=== PATIENT | male | born 1960 | race Caucasian/White ===

== ENCOUNTER → 2019-12-06 07:55 | Outpatient (CLI) | payer BC, SELFPAY ==
--- NOTE | 2019-12-06 | DI.US.S_ITS ---
PROCEDURE: US ABD AORTA ANEURYSM SCREEN INDICATIONS: SCREENING TECHNIQUE: Real time scanning was performed of the aorta and iliac arteries, with image documentation. COMPARISON: [facility], CT, KIDNEY/ URETER/BLADDER, 02/02/2017, 12:02. FINDINGS: Aorta: Proximal aortic diameter measures 1.8 cm. Mid-aorta measures 1.7 cm. Distal aortic diameter is 1.6 cm. Iliac arteries: Right common iliac artery measures 1.1 cm. Left common iliac artery measures 1.1 cm. IMPRESSION: Negative for aneurysm. Dictated by: Driss Mckay M.D. on 12/06/2019 at 8:03 Approved by: Driss Mckay M.D. on 12/06/2019 at 8:04
== END ==
PROVIDERS: Family Provider Family Medicine; PCP Student in an Organized Health Care Education/Training Program; Referring Provider Student in an Organized Health Care Education/Training Program; Visit Provider Student in an Organized Health Care Education/Training Program
DX: Z13.6 Encounter for screening for cardiovascular disorders (principal)
CPT/HCPCS: 76706

== ENCOUNTER → 2020-07-24 11:19 | Outpatient (CLI) | payer BC, SELFPAY ==
[2020-07-25 01:28] LABS: COVID19 Sendout Not Detected (Not Detect)
== END ==
PROVIDERS: Family Provider Family Medicine; PCP Student in an Organized Health Care Education/Training Program; Visit Provider Physician Assistant
DX: Z01.812 Encounter for preprocedural laboratory examination (principal)
CPT/HCPCS: 87635

== ENCOUNTER → 2020-07-27 12:45 | Outpatient (CLI) | payer BC, SELFPAY ==
--- NOTE | 2020-07-27 | DI.RAD.S_ITS ---
PROCEDURE: XR CHEST 2V INDICATIONS: SHORTNESS OF BREATH TECHNIQUE: 2 views of the chest were acquired. COMPARISON: [facility], , CHEST 2 VIEW, 04/23/2015, 11:57. FINDINGS: Surgical changes and devices: None. Lungs and pleura: Lungs are clear. No pleural effusions or pneumothorax. Mediastinum: Mediastinal contours are normal. Heart size is normal. Bones and chest wall: No suspicious bony abnormalities. Soft tissues appear unremarkable. IMPRESSION: No acute cardiopulmonary disease. Dictated by: Ernesto ABBASI Interpreted: Dorita Hurley MD on 07/27/2020 at 16:25 Approved by: Dorita Hurley M.D. on 07/27/2020 at 16:33
--- NOTE | 2020-08-02 09:00 | PM.PFT.1 ---
Pulmonary Function Test Referral & Results Date Patient Seen: 07/27/20 Requesting provider: Qing Wagner Results: The spirometry demonstrates an FVC of 5.6 or L which is 106% of predicted. The FEV1 was measured at 3.94 L which is 99% of predicted. The FEV1/FVC ratio was 70 which is 93% of predicted. Following the administration of bronchodilator there was no appreciable change. Lung volumes show an SVC of 5.04 L which is 97% of predicted. The diffusing capacity was measured at 34.73 which is 95% of predicted. The maximum voluntary ventilation was normal Interpretation: This study demonstrates normal pulmonary function
== END ==
PROVIDERS: Family Provider Family Medicine; PCP Student in an Organized Health Care Education/Training Program; Referring Provider Student in an Organized Health Care Education/Training Program; Visit Provider Student in an Organized Health Care Education/Training Program
DX: R06.02 Shortness of breath (principal)
CPT/HCPCS: 71046; 94060; 94726; 94729

== ENCOUNTER → 2022-11-11 07:38 | Outpatient (CLI) | payer BC, SELFPAY ==
--- NOTE | 2022-11-11 07:40 | DI.US.S_ITS ---
PROCEDURE: US ABDOMEN COMPLETE INDICATIONS: RIGHT UPPER QUADRANT PAIN TECHNIQUE: Real-time scanning was performed of the abdominal and retroperitoneal organs, with image documentation. COMPARISON: [facility], CT, KIDNEY/ URETER/BLADDER, 02/02/2017, 12:02. FINDINGS: Liver: The liver demonstrates mildly enlarged size. The liver demonstrates generalized mildly increased echogenicity. This decreases ultrasound sensitivity for detection of hepatic masses. The main portal vein demonstrates normal size and demonstrates normal appearing, hepatopetal flow. Gallbladder: The gallbladder appears filled with stones and sludge. There is posterior shadowing, obscuring evaluation of the region The gallbladder wall is not thickened, measuring 3 mm or less. No specific pericholecystic fluid is seen. The sonographic Saenz sign is negative. Biliary ducts: Intrahepatic bile ducts are non-dilated. Extrahepatic bile duct caliber measures 5 mm. Normal is 6-7 mm or less in diameter, or 10 mm or less post-cholecystectomy. Pancreas: Visualized portions of the pancreas are sonographically normal. Spleen: Spleen is normal in size and homogeneous in echotexture. Kidneys: Kidneys are normal in size and echotexture. Right kidney measures 11.9 cm long; left kidney measures 12.7 cm long. No hydronephrosis. No solid masses. There is an apparent shadowing stone seen involving the right renal pelvis that measures to 7 mm. Aorta: Visualized aorta is normal in caliber at less than 3 cm. Iliacs: Proximal common iliac arteries are normal in caliber at less than 2.5 cm. IVC: Intrahepatic inferior vena cava is patent. Miscellaneous: No free abdominal fluid. IMPRESSION: Abnormal gallbladder, which appears filled with stones and sludge, with prominent associated shadowing. Mildly enlarged liver with fatty liver infiltration. Apparent 7 mm shadowing right renal stone. Dictated by: Driss Mckay M.D. on 11/11/2022 at 16:44 Approved by: Driss Mckay M.D. on 11/11/2022 at 16:47
== END ==
PROVIDERS: PCP Family Medicine; Referring Provider Family Medicine; Visit Provider Family Medicine
DX: R10.11 Right upper quadrant pain (principal); K76.0 Fatty (change of) liver, not elsewhere classified; R93.2 Abnormal findings on diagnostic imaging of liver and biliary tract
CPT/HCPCS: 76700

== ENCOUNTER 2023-08-06 16:55 | Emergency (ER) | payer BC, SELFPAY ==
[2023-08-06 17:08] VITALS: BP 185/99; PULSE 96; RESP 20; TEMP 37.5; O2SAT 99; BMI 26.4
--- NOTE | 2023-08-06 17:16 | DI.RAD.S_ITS ---
PROCEDURE: XR CHEST 1V INDICATIONS: chest pain TECHNIQUE: One view of the chest was acquired. COMPARISON: [facility], CR, XR CHEST 2V, 07/27/2020, 13:31. FINDINGS: Surgical changes and devices: None. Lungs and pleura: Lungs are clear. No pleural effusions or pneumothorax. Mediastinum: Mediastinal contours appear normal. Heart size is normal. Bones and chest wall: No suspicious bony lesions. Age-appropriate bony degenerative changes are seen. Overlying soft tissues appear unremarkable. IMPRESSION: Portable chest within normal limits for age. Dictated by: Driss Mckay M.D. on 08/06/2023 at 17:03 Approved by: Driss Mckay M.D. on 08/06/2023 at 17:04
[2023-08-06 17:45] LABS: Prothrombin Time 11.7 SECONDS (10.1-12.7)
[2023-08-06 17:48] LABS: PTT Partial Thromboplastin Tim 36 SECONDS (26-36)
[2023-08-06 17:49] LABS: Add Manual Diff / Slide Review NO; Basophils Absolute Auto 0 /uL (0-100); Basophils Percent Auto 0.4 % (0-2); Eosinophils Absolute Auto 400 /uL (0-450); Hematocrit 42.7 % (41-53); Hemoglobin 14.9 g/dL (13.5-17.5); Lymphocytes Absolute Auto 1000 /uL (1100-4500); Lymphocytes Percent Auto 9.8 % (25-40); Mean Corpuscular HGB Conc 34.9 % (30-36); Mean Corpuscular Hemoglobin 30.6 PG (26-34); Mean Corpuscular Volume 87.8 fL (80-100); Monocytes Absolute Auto 600 /uL (0-900); Monocytes Percent Auto 6.6 % (3-14); Neutrophils Absolute Auto 7700 /uL (1500-7000); Neutrophils Percent Auto 79.2 % (50-75); Platelet Count 196 X10^3/uL (150-400); Red Blood Cell Count 4.86 X10^6/uL (4.5-5.9); Red Cell Distribution Width 13.9 % (11.6-14.8); White Blood Cell Count 9.7 X10^3/uL (4.5-11.0)
[2023-08-06 17:53] LABS: Alanine Aminotransferase 18 IU/L (<50); Albumin 4.8 g/dL (3.5-5.0); Albumin Globulin Ratio 1.5 (1.0-2.8); Alkaline Phosphatase 43 U/L (38-126); Aspartate Aminotransferase 28 IU/L (17-59); BUN Creatinine Ratio 15.9 (6-22); Bilirubin Total 0.8 mg/dL (0.2-1.3); Blood Urea Nitrogen 14 mg/dL (9-20); Calcium 9.5 mg/dL (8.4-10.2); Carbon Dioxide 24 mmol/L (22-32); Chloride 101 mmol/L (98-107); Creatine Kinase 74 U/L (55-170); Estimated Glomerular Filt Rate > 60 mL/min (>60); Globulin 3.1 g/dL (1.7-4.1); Glucose 103 mg/dL (80-110); HEMOLYSIS 24 (0-50); Lipase 50 U/L (23-300); Magnesium 1.9 mg/dL (1.6-2.3); Sodium 136 mmol/L (137-145); Total Protein 7.9 g/dL (6.3-8.2)
[2023-08-06 18:02] LABS: Troponin I < 0.012 ng/mL (0.01-0.034)
[2023-08-06 18:16] LABS: COVID-19 CEPHEID 4-PLEX PCR Negative (Negative); Influenza A - CEPHEID Flu A NEGATIVE (NEGATIVE); Influenza B - CEPHEID Flu B NEGATIVE (NEGATIVE); Respiratory Syncytial Virus Negative (Negative)
[2023-08-06 18:45] VITALS: PULSE 90; RESP 16; O2SAT 99
--- NOTE | 2023-08-06 18:59 | ED.ARRPALP ---
HPI - Arrhythmia/Palpitations General Chief Complaint: Arrhythmia/Palpitations Stated Complaint: A-Fib, heart is racing Time Seen by Provider: 08/06/23 18:45 Source: patient Mode of arrival: Ambulatory History of Present Illness HPI narrative: Patient is a 63-year-old male. Has had history of palpitations in the past. Has never had a diagnosis of AFib. Has never had a Holter monitor. Not on any medications for palpitations. He does have a history of high blood pressure. He is currently fighting a sinus infection. Not currently on any antibiotics. States that last evening he had an episode of his palpitations. He did get somewhat lightheaded during the episode but no chest pain or shortness of breath. Episode lasted for approximately 1 hour which is somewhat longer than what it normally does. He mostly feels the symptoms at night. Because of the length of time that the symptoms lasted that is what brought him in today. He is currently asymptomatic. Related Data Home Medications Medication Instructions Recorded Confirmed albuterol sulfate 90 mcg/actuation 2 puff inhalation Q6H PRN 12/11/22 12/11/22 aerosol inhaler (Ventolin HFA) amlodipine 10 mg tablet 10 mg PO DAILY 12/11/22 12/11/22 budesonide 0.5 mg/2 mL suspension 0.5 mg irrigation DAILY nasal 12/11/22 12/11/22 for nebulization rinse daily fluticasone propionate 250 2 inh inhalation BID 12/11/22 12/11/22 mcg/actuation blister powder for inhalation (Flovent Diskus) levothyroxine 200 mcg tablet 200 mcg PO DAILY 12/11/22 12/11/22 nortriptyline 10 mg capsule 10 mg PO BEDTIME 12/11/22 12/11/22 Allergies Allergy/AdvReac Type Severity Reaction Status Date / Time sulfamethoxazole Allergy Unknown Verified 08/06/23 17:15 [From BACTRIM] trimethoprim [From BACTRIM] Allergy Unknown Verified 08/06/23 17:15 spironolactone Allergy Verified 08/06/23 17:15 Review of Systems Constitutional Constitutional: Reports system reviewed and no additional complaints, except as documented Cardiovascular Cardiovascular: Reports system reviewed and no additional complaints, except as documented Respiratory Respiratory: Reports system reviewed and no additional complaints, except as documented Gastrointestinal Gastrointestinal: Reports system reviewed and no additional complaints, except as documented Integumentary/Breasts Skin/Breast: Reports system reviewed and no additional complaints, except as documented Neurologic Neurologic: Reports system reviewed and no additional complaints, except as documented Hematologic/Lymphatic On Anticoagulants: No Patient History Medical History Tinnitus Thyroid cancer Social History Smoking Status: Never smoker Smoking Status: Never smoker tobacco type: cigarettes alcohol intake frequency: 0-2 drinks per day Substance Use Type: does not use Exam Initial Vital Signs Initial Vital Signs: Vital Signs Temperature 99.5 F 08/06/23 17:08 Pulse Rate 96 H 08/06/23 17:08 Respiratory Rate 20 08/06/23 17:08 Blood Pressure 185/99 H 08/06/23 17:08 Pulse Oximetry 99 08/06/23 17:08 Oxygen Delivery Method Room Air 08/06/23 17:08 Const General: cooperative, comfortable and No ill appearing HENMT Head: normal to inspection and normocephalic Resp Effort & Inspection: normal respiratory effort Auscultation: clear to auscultation bilaterally Cardio Rate: regular rate Rhythm: regular rhythm GI Inspection: normal to inspection Skin General: no rashes or lesions noted Neuro General: patient alert, patient awake, patient oriented x3 and moves all extremities Extrem General: capillary refill normal Course Orders Ordered: ED Orders 08/06/23 17:16 XR chest 1V Stat 08/06/23 17:17 EKG-12 Lead Stat 08/06/23 17:25 Complete Blood Count AUTO DIFF Stat Comprehensive Metabolic Panel Stat Covid-19 + FLU A/B + RSV - PCR Stat Lipase Stat Magnesium Stat PTT Partial Thromboplastin Neel Stat Prothrombin Time INR Stat Troponin & CK Cardiac Panel Stat Discontinued Medications Aspirin (Aspirin 81 Mg Chew Tab) 324 mg PO NOW ONE Stop: 08/06/23 17:17 Last Admin: 08/06/23 18:45 Dose: Not Given Documented By: ROXIE Vital Signs Vital signs: Vital Signs - 8 hr 08/06/23 17:08 08/06/23 18:45 08/06/23 19:10 Temperature 99.5 F Pulse Rate 96 H 90 Respiratory Rate 20 16 Blood Pressure 185/99 H 173/98 H Pulse Oximetry 99 99 Oxygen Delivery Method Room Air Room Air 08/06/23 19:16 Temperature Pulse Rate 90 Respiratory Rate 18 Blood Pressure 173/98 H Pulse Oximetry 98 Oxygen Delivery Method Room Air MDM - Arrhythmia/Palpitations Lab Data Attestation: I reviewed the patient's lab results. 08/06/23 17:25 08/06/23 17:25 Labs: Lab Results 08/06/23 Range/Units 17:25 WBC 9.7 (4.5-11.0) X10^3/uL RBC 4.86 (4.5-5.9) X10^6/uL Hgb 14.9 (13.5-17.5) g/dL Hct 42.7 (41-53) % MCV 87.8 (80-100) fL MCH 30.6 (26-34) PG MCHC 34.9 (30-36) % RDW 13.9 (11.6-14.8) % Plt Count 196 (150-400) X10^3/uL Neut % (Auto) 79.2 H (50-75) % Lymph % (Auto) 9.8 L (25-40) % [place] % (Auto) 6.6 (3-14) % Eos % (Auto) 4.0 (2-4) % Baso % (Auto) 0.4 (0-2) % Neut # (Auto) 7700 H (9078-4995) /uL Lymph # (Auto) 1000 L (0290-3656) /uL [place] # (Auto) 600 (0-900) /uL Eos # (Auto) 400 (0-450) /uL Baso # (Auto) 0 (0-100) /uL PT 11.7 (10.1-12.7) SECONDS INR 1.0 (0.9-1.3) APTT 36 (26-36) SECONDS Sodium 136 L (137-145) mmol/L Potassium 4.0 (3.4-5.1) mmol/L Chloride 101 (98-107) mmol/L Carbon Dioxide 24 (22-32) mmol/L BUN 14 (9-20) mg/dL Creatinine 0.88 (0.66-1.25) mg/dL Estimated GFR > 60 (>60) mL/min BUN/Creatinine Ratio 15.9 (6-22) Glucose 103 (80-110) mg/dL Calcium 9.5 (8.4-10.2) mg/dL Magnesium 1.9 (1.6-2.3) mg/dL Total Bilirubin 0.8 (0.2-1.3) mg/dL AST 28 (17-59) IU/L ALT 18 (<50) IU/L Alkaline Phosphatase 43 (38-126) U/L Total Creatine Kinase 74 (55-170) U/L Troponin I < 0.012 (0.01-0.034) ng/mL Total Protein 7.9 (6.3-8.2) g/dL Albumin 4.8 (3.5-5.0) g/dL Globulin 3.1 (1.7-4.1) g/dL Albumin/Globulin Ratio 1.5 (1.0-2.8) Lipase 50 (23-300) U/L SARS-CoV-2 (PCR) Negative (Negative) Influenza A (RT-PCR) Flu a negative (NEGATIVE) Influenza B (RT-PCR) Flu b negative (NEGATIVE) RSV (PCR) Negative (Negative) Imaging Data Chest x-ray: Radiologist's Impresson: PROCEDURE: XR CHEST 1V INDICATIONS: chest pain TECHNIQUE: One view of the chest was acquired. COMPARISON: [facility], , XR CHEST 2V, 07/27/2020, 13:31. FINDINGS: Surgical changes and devices: None. Lungs and pleura: Lungs are clear. No pleural effusions or pneumothorax. Mediastinum: Mediastinal contours appear normal. Heart size is normal. Bones and chest wall: No suspicious bony lesions. Age-appropriate bony degenerative changes are seen. Overlying soft tissues appear unremarkable. IMPRESSION: Portable chest within normal limits for age. ECG Data Attestation: I personally reviewed and interpreted this ECG as follows: Interpretation: Sinus rhythm Ventricular rate of 92 Normal axis Normal QRS Normal QTC No ST T wave changes MDM Narrative Medical decision making narrative: Patient is currently asymptomatic. He is sinus rhythm on his EKG at a rate of 92. His electrolytes are unremarkable. Had a discussion with him regarding his symptoms. Discussed the fact that he should talk with his primary doctor about referral to see Cardiology and also a Holter monitor. Was no indication for admission to the hospital. Will discharge patient home with him to continue his current blood pressure medications. He was given return precautions. He expressed understanding and agreement. Discharge Plan Departure Patient Disposition: Home Clinical Impression: Palpitations, Hypertension Instructions: DI for Palpitations Activity Restrictions/Additional Instructions: I do recommend that you contact your primary doctor to discuss the indications for a Holter monitor. Also recommend that you continue to take all of your medications as directed to include your blood pressure medication. Be sure that you are taking your blood pressure at home on a regular basis. Return to the emergency department for new symptoms. Prescriptions: No Action amlodipine 10 mg tablet 10 mg PO DAILY nortriptyline 10 mg capsule 10 mg PO BEDTIME levothyroxine 200 mcg tablet 200 mcg PO DAILY Flovent Diskus 250 mcg/actuation blister with device 2 inh inhalation BID albuterol sulfate [Ventolin HFA] 90 mcg/actuation HFA aerosol inhaler 2 puff inhalation Q6H PRN budesonide 0.5 mg/2 mL suspension for nebulization 0.5 mg irrigation DAILY Referrals: Calvin Kenyon MD [Primary Care Provider] - Stand Alone Forms: Patient Portal/API
[2023-08-06 19:10] VITALS: BP 173/98
[2023-08-06 19:16] VITALS: BP 173/98; PULSE 90; RESP 18; O2SAT 98
== END 2023-08-06 19:17 | disposition home or self-care (01) ==
PROVIDERS: Emergency Medicine; Emergency Provider Emergency Medicine; PCP Family Medicine
DX: R00.2 Palpitations (principal); I10 Essential (primary) hypertension; R07.9 Chest pain, unspecified; Z20.822 Contact with and (suspected) exposure to COVID-19
CPT/HCPCS: 0241U; 71045; 80053; 82550; 83690; 83735; 84484; 85025; 85610; 85730; 93005; 93010; 99283; 99284

== ENCOUNTER 2025-01-19 17:07 | Emergency (ER) | payer MEDICARE, BC, SELFPAY ==
[2025-01-19] VITALS (15 sets, daily range): BP systolic 137–174; BP diastolic 76–101; PULSE 95–127; RESP 12–21; TEMP 36.6; O2SAT 95–99; BMI 27.1
--- NOTE | 2025-01-19 17:16 | DI.RAD.S_ITS ---
PROCEDURE: XR CHEST 1V INDICATIONS: chest pain TECHNIQUE: One view of the chest was acquired. COMPARISON: [facility], CR, XR CHEST 1V, 08/06/2023, 17:26. FINDINGS: Surgical changes and devices: None. Lungs and pleura: Lungs are clear. No pleural effusions or pneumothorax. Mediastinum: Mediastinal contours appear normal. Heart size is normal. Bones and chest wall: No suspicious bony lesions. Overlying soft tissues appear unremarkable. IMPRESSION: No acute cardiopulmonary pathology. Dictated by: Gonzalo Barros M.D. on 01/19/2025 at 17:54 Approved by: Gonzalo Barros M.D. on 01/19/2025 at 17:54
--- NOTE | 2025-01-19 17:16 | EKG_ITS ---
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
[2025-01-19] MEDS: dilTIAZem 25 MG/5 ML SDV 20 MG IV (18:18)
--- NOTE | 2025-01-19 18:18 | ED.ARRPALP ---
HPI - Arrhythmia/Palpitations General Chief Complaint: Arrhythmia/Palpitations Stated Complaint: states irreg heart rate Time Seen by Provider: 01/19/25 17:42 Source: patient Mode of arrival: Ambulatory History of Present Illness HPI narrative: 64-year-old male with a past medical history of hypothyroidism hypertension comes into the ED from home for evaluation of arrhythmias. He states that he has had similar symptoms a proximally 5 times in the past 20 years but has never been officially diagnosed with any a arrhythmias. He states that today he felt like his heart was racing when he was cleaning his car at around 3:00 p.m., he came in today however due to the fact that he has had similar symptoms over the past 3 weeks which is more than he has ever had in the past several years. Patient states that He denies any other sentences headache visual disturbances chest pain shortness breath fever chills nausea vomiting abdominal pain or any other GI/ symptoms. Related Data Home Medications Medication Instructions Recorded Confirmed amlodipine 10 mg tablet 10 mg PO DAILY 12/11/22 01/19/25 levothyroxine 200 mcg tablet 200 mcg PO DAILY 12/11/22 01/19/25 nortriptyline 10 mg capsule 10 mg PO BEDTIME 12/11/22 12/11/22 triamcinolone acetonide 55 mcg 1 spray intranasal DAILY 01/19/25 01/19/25 nasal spray aerosol (Nasacort) Previous Rx's Medication Instructions Recorded apixaban 5 mg tablet (Eliquis) 5 mg PO BID 1 month #60 tabs 01/19/25 metoprolol succinate 25 mg 25 mg PO DAILY 1 month #30 tabs 01/19/25 tablet,extended release 24 hr Allergies Allergy/AdvReac Type Severity Reaction Status Date / Time sulfamethoxazole Allergy Unknown Rash Verified 01/19/25 17:27 [From BACTRIM] trimethoprim [From BACTRIM] Allergy Unknown Verified 08/06/23 17:15 spironolactone Allergy Verified 08/06/23 17:15 Review of Systems Review of Systems Narrative: General: Denies fever, chills, weight loss HEENT: Denies headache, eye drainage, eye irritation, head trauma, sore throat, voice change Cardiovascular: Positive palpitations Denies any chest pain,tachycardia Respiratory: Denies any shortness of breath, cough, wheeze, stridor GI/: Denies any abdominal pain, nausea, vomiting, diarrhea, bright red blood per rectum, melanotic stools, urinary frequency, urinary retention, dysuria, hematuria MSK: Denies any joint pain, muscle pains, swelling Skin: Denies any rashes, lesions, discoloration Neuro: Denies any headache, lightheadedness, dizziness, fainting, weakness Psych: Denies SI/HI Patient History Medical History Tinnitus Thyroid cancer Social History Smoking Status: Unknown if ever smoked Smoking Status: Unknown if ever smoked tobacco type: cigarettes alcohol intake frequency: 0-2 drinks per day Exam Narrative Exam Narrative: General: Cooperative, well-developed, not in acute distress HEENT: Normocephalic, atraumatic, PERRLA, normal sclera, eyelids normal Neck: Active full range of motion, atraumatic Chest: Normal to inspection, negative crepitus, no overlying erythema ecchymosis Respiratory: Normal respiratory effort, not in acute respiratory distress, clear to auscultation bilaterally negative cough, wheeze, tachypnea, rhonchi, rales Cardiology: Regular rate rhythm negative gallop, murmur, rubs GI/: No tenderness to palpation, soft, non rigid, normal to inspection, exam deferred MSK: Full active range of motion in all 4 extremities, atraumatic, no tenderness to palpation of any bony prominences Skin: No rashes or lesions noted Neuro: Alert awake oriented x3, moves all 4 extremities spontaneously, cranial nerves intact, able to answer all questions appropriately follows commands appropriately Psych: Cooperative, negative suicidal or homicidal ideations Initial Vital Signs Initial Vital Signs: Vital Signs Temperature 98 F 01/19/25 17:22 Pulse Rate 114 H 01/19/25 17:22 Respiratory Rate 17 01/19/25 17:22 Blood Pressure 160/101 H 01/19/25 17:22 Pulse Oximetry 99 01/19/25 17:22 Oxygen Delivery Method Room Air 01/19/25 17:22 Course Orders Ordered: ED Orders 01/19/25 17:16 XR chest 1V Stat EKG-12 Lead Stat 01/19/25 18:10 Complete Blood Count AUTO DIFF Stat Comprehensive Metabolic Panel Stat Lipase Stat Magnesium Stat NT-proBNP (BNP-Adult 18+) Stat PTT Partial Thromboplastin Neel Stat Prothrombin Time INR Stat Troponin & CK Cardiac Panel Stat Discontinued Medications Apixaban (Apixaban 5 Mg Tablet) 5 mg PO NOW ONE Stop: 01/19/25 18:39 Last Admin: 01/19/25 18:55 Dose: 5 mg Documented By: CARINA Aspirin (Aspirin 81 Mg Chew Tab) 324 mg PO NOW ONE Stop: 01/19/25 17:17 Last Admin: 01/19/25 18:19 Dose: 324 mg Documented By: CARINA Diltiazem HCl (Diltiazem 25 Mg/5 Ml Sdv) 20 mg IV NOW ONE Stop: 01/19/25 17:43 Last Admin: 01/19/25 18:18 Dose: 20 mg Documented By: CARINA Diltiazem HCl (Diltiazem 30 Mg Tablet) 60 mg PO NOW ONE Stop: 01/19/25 18:33 Last Admin: 01/19/25 18:56 Dose: 60 mg Documented By: CARINA Magnesium Sulfate (Magnesium Sulfate) 2 gm in 50 mls @ 150 mls/hr IV NOW ONE Stop: 01/19/25 18:51 Last Infusion: 01/19/25 19:27 Dose: Infused Documented By: MATILDA Co-signed By: Admin: 01/19/25 18:56 Dose: 150 mls/hr Documented By: CARINA Co-signed By: MATILDA Vital Signs Vital signs: Vital Signs - 8 hr 01/19/25 17:22 01/19/25 17:25 01/19/25 17:28 Temperature 98 F Pulse Rate 114 H 111 H Respiratory Rate 17 Blood Pressure 160/101 H 160/101 H Pulse Oximetry 99 99 Oxygen Delivery Method Room Air 01/19/25 17:28 01/19/25 17:30 01/19/25 17:30 Temperature Pulse Rate 122 H 125 H Respiratory Rate 18 18 Blood Pressure 147/96 H Pulse Oximetry 99 99 Oxygen Delivery Method 01/19/25 18:00 01/19/25 18:18 01/19/25 18:56 Temperature Pulse Rate 126 H 127 H 101 H Respiratory Rate 12 Blood Pressure 147/96 H 174/96 H Pulse Oximetry 98 Oxygen Delivery Method MDM - Arrhythmia/Palpitations Differential Diagnosis Differential diagnosis: Likely palpitations, sinus tachycardia, artial fibrillation, artial flutter, supraventricular tachycardia and other (ACS, electrolyte abnormality, pneumonia) Lab Data 01/19/25 18:10 01/19/25 18:10 Labs: Lab Results 01/19/25 Range/Units 18:10 WBC 6.5 (4.5-11.0) X10^3/uL RBC 4.96 (4.5-5.9) X10^6/uL Hgb 15.2 (13.5-17.5) g/dL Hct 43.9 (41-53) % MCV 88.6 (80-100) fL MCH 30.7 (26-34) PG MCHC 34.6 (30-36) % RDW 13.3 (11.6-14.8) % Plt Count 215 (150-400) X10^3/uL Neut % (Auto) 55.0 (50-75) % Lymph % (Auto) 24.3 L (25-40) % Sac % (Auto) 11.0 (3-14) % Eos % (Auto) 8.8 H (2-4) % Baso % (Auto) 0.9 (0-2) % Neut # (Auto) 3600 (2835-4140) /uL Lymph # (Auto) 1600 (7772-6807) /uL Sac # (Auto) 700 (0-900) /uL Eos # (Auto) 600 H (0-450) /uL Baso # (Auto) 100 (0-100) /uL PT 10.3 (9.4-12.5) SECONDS INR 0.9 (0.9-1.3) APTT 39 H (25.1-36.5) SECONDS Sodium 140 (137-145) mmol/L Potassium 3.8 (3.4-5.1) mmol/L Chloride 103 (98-107) mmol/L Carbon Dioxide 26 (22-32) mmol/L BUN 17 (9-20) mg/dL Creatinine 0.92 (0.66-1.25) mg/dL Estimated GFR > 60 (>60) mL/min BUN/Creatinine Ratio 18.5 (6-22) Glucose 104 (80-110) mg/dL Calcium 9.7 (8.4-10.2) mg/dL Magnesium 2.1 (1.6-2.3) mg/dL Total Bilirubin 0.7 (0.2-1.3) mg/dL AST 28 (17-59) IU/L ALT 15 (<50) IU/L Alkaline Phosphatase 52 (38-126) U/L Total Creatine Kinase 84 (55-170) U/L Troponin I < 0.012 (0.01-0.034) ng/mL NT-Pro-B Natriuret Pep 86 (<125) pg/mL Total Protein 8.3 H (6.3-8.2) g/dL Albumin 5.1 H (3.5-5.0) g/dL Globulin 3.2 (1.7-4.1) g/dL Albumin/Globulin Ratio 1.6 (1.0-2.8) Lipase 102 (23-300) U/L Imaging Data Chest x-ray: Radiologist's Impresson: [address] [address] XRay Report Signed Patient: Dalton Jackson MR#: [id number] : 1960 Acct:[id number] Age/Sex: 64 / M Date of Service: 01/19/25 Loc: ED Accession Number: [id number] Procedure: XR chest 1V Ordering Provider: Dandre Gamble MD PROCEDURE: XR CHEST 1V INDICATIONS: chest pain TECHNIQUE: One view of the chest was acquired. COMPARISON: [facility], , XR CHEST 1V, 08/06/2023, 17:26. FINDINGS: Surgical changes and devices: None. Lungs and pleura: Lungs are clear. No pleural effusions or pneumothorax. Mediastinum: Mediastinal contours appear normal. Heart size is normal. Bones and chest wall: No suspicious bony lesions. Overlying soft tissues appear unremarkable. IMPRESSION: No acute cardiopulmonary pathology. ECG Data Interpretation: EKG interpreted ED physician atrial fibrillation 126 beats per minute QTC 4-[address] changes no STEMI MDM Narrative Medical decision making narrative: 64-year-old male past medical history of hypertension hypothyroidism presents to the emergency department for palpitations, states that he has had similar symptoms like this over the past 20 years, states it normally only happens once a year however he has had multiple symptoms over the past week or 2, he states that today it started at around 3 when he was washing his car, he states it normally stops after about 12 hours but because he has had increased symptoms decided come into the ED for further evaluation treatment. Patient was found to be in AFib at 1:20 a.m., did receive IV Cardizem and p.o. Cardizem, patient now rate controlled he was started on Eliquis given his elevated CHADS-VASc score, he will be sent home on metoprolol and instructed to follow up with primary care and Cardiology in outpatient setting, lab work was unremarkable no leukocytosis Chem panel unremarkable troponin negative, chest x-ray without any acute cardiopulmonary abnormalities, patient was given strict return precautions he verbalized understanding of this and agrees to being discharged home with outpatient follow up Patient with a CHADS-VASc score of 2 therefore patient will be started on anticoagulation given new onset AFib Discharge Plan Departure Patient Disposition: Home Clinical Impression: New onset a-fib Instructions: DI for Atrial Fibrillation Activity Restrictions/Additional Instructions: Please follow up with Cardiology and your primary care doctor Please go to the following link to get a free/discounted course of eliquis: [email or web address] Please read the discharge instructions sheet carefully and bring all papers to all doctor follow-up visits, as it may contain information that your doctor may want to see. Disease processes change and evolve, if your symptoms worsen or if you develop any new symptoms that are concerning to you please return for evaluation. Your evaluation today does not show any evidence of any life-threatening/serious illnesses requiring admission to the hospital or surgery. Please follow-up with your doctor for re-evaluation in approximately 1 day. Seek immediate medical attention for any worrisome symptoms. *If you do not have a primary care provider please contact the [facility] Resource line at [phone]. They will ask some questions about your medical history and help get you set up with a doctor in the community. Prescriptions: New Eliquis 5 mg tablet 5 mg PO BID 30 Days Qty: 60 0RF metoprolol succinate 25 mg tablet extended release 24 hr 25 mg PO DAILY 30 Days Qty: 30 0RF No Action amlodipine 10 mg tablet 10 mg PO DAILY nortriptyline 10 mg capsule 10 mg PO BEDTIME levothyroxine 200 mcg tablet 200 mcg PO DAILY triamcinolone acetonide [Nasacort] 55 mcg Aerosol,[place] 1 spray INTRANASAL DAILY Rx Instructions: administer into each nostril Referrals: Andrea Barros MD [Physician] - As soon as possible (New onset AFib) Calvin Kenyon MD [Primary Care Provider] - Stand Alone Forms: Patient Portal/API/Survey
[2025-01-19] MEDS: ASPIRIN 81 MG CHEW TAB 324 MG PO (18:19)
[2025-01-19 18:20] LABS: Add Manual Diff / Slide Review NO; Basophils Absolute Auto 100 /uL (0-100); Basophils Percent Auto 0.9 % (0-2); Eosinophils Absolute Auto 600 /uL (0-450); Eosinophils Percent Auto 8.8 % (2-4); Hematocrit 43.9 % (41-53); Hemoglobin 15.2 g/dL (13.5-17.5); Lymphocytes Absolute Auto 1600 /uL (1100-4500); Lymphocytes Percent Auto 24.3 % (25-40); Mean Corpuscular HGB Conc 34.6 % (30-36); Mean Corpuscular Hemoglobin 30.7 PG (26-34); Mean Corpuscular Volume 88.6 fL (80-100); Monocytes Absolute Auto 700 /uL (0-900); Neutrophils Absolute Auto 3600 /uL (1500-7000); Platelet Count 215 X10^3/uL (150-400); Red Blood Cell Count 4.96 X10^6/uL (4.5-5.9); Red Cell Distribution Width 13.3 % (11.6-14.8); White Blood Cell Count 6.5 X10^3/uL (4.5-11.0)
[2025-01-19 18:26] LABS: INR 0.9 (0.9-1.3); Prothrombin Time 10.3 SECONDS (9.4-12.5)
[2025-01-19 18:29] LABS: PTT Partial Thromboplastin Tim 39 SECONDS (25.1-36.5)
[2025-01-19 18:36] LABS: Alanine Aminotransferase 15 IU/L (<50); Albumin 5.1 g/dL (3.5-5.0); Albumin Globulin Ratio 1.6 (1.0-2.8); Alkaline Phosphatase 52 U/L (38-126); Aspartate Aminotransferase 28 IU/L (17-59); BUN Creatinine Ratio 18.5 (6-22); Bilirubin Total 0.7 mg/dL (0.2-1.3); Blood Urea Nitrogen 17 mg/dL (9-20); Calcium 9.7 mg/dL (8.4-10.2); Carbon Dioxide 26 mmol/L (22-32); Chloride 103 mmol/L (98-107); Creatine Kinase 84 U/L (55-170); Estimated Glomerular Filt Rate > 60 mL/min (>60); Globulin 3.2 g/dL (1.7-4.1); Glucose 104 mg/dL (80-110); HEMOLYSIS < 15 (0-50); Lipase 102 U/L (23-300); Magnesium 2.1 mg/dL (1.6-2.3); Potassium 3.8 mmol/L (3.4-5.1); Sodium 140 mmol/L (137-145); Total Protein 8.3 g/dL (6.3-8.2)
[2025-01-19 18:46] LABS: NT-proBNP (BNP-Adult 18+) 86 pg/mL (<125); Troponin I < 0.012 ng/mL (0.01-0.034)
[2025-01-19] MEDS: APIXABAN 5 MG TABLET PO (18:55)
[2025-01-19] MEDS: dilTIAZem 30 MG TABLET 60 MG PO (18:56)
[2025-01-19] MEDS: MAGNESIUM SULFATE 2 GM/50 ML PIGGYBACK IV (18:56)
--- NOTE | 2025-01-19 19:13 | PC.NURSE ---
Pt ambulatory to restroom without difficulty or assistance. Placed self back in ED stretcher. Reconnected to cardiac, blood pressure, pulse ox, and resp. monitors with alarms on and audible. Call light within reach.
== END 2025-01-19 22:04 | disposition home or self-care (01) ==
PROVIDERS: Emergency Medicine; Emergency Provider Student in an Organized Health Care Education/Training Program; PCP Family Medicine
DX: I48.91 Unspecified atrial fibrillation (principal); R07.9 Chest pain, unspecified
CPT/HCPCS: 36415; 71045; 80053; 82550; 83690; 83735; 83880; 84484; 85025; 85610; 85730; 93005; 96365; 96375; 99284; J3475